=== PATIENT | female | born 2000 | race Two or more races ===

== ENCOUNTER 2024-12-10 09:03 | Emergency (ER) | payer OTHER ==
[~2024-12-10] VITALS: Ht 157.5 cm; Wt 73.5 kg
--- NOTE | 2024-12-10 09:41 | ED.PDOC ---
History of Present Illness HPI Comments 24 year old female with runny nose on and off for last 2 weeks. 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 patient states she noticed some swelling on the left lymph node. No nause no vomiting. Chief Complaint: Flu like Time Seen by MD: 09:36 Primary Care Provider: MILO Owens Notes: Nurses Notes, Medications, Allergies Allergies: Coded Allergies: NO KNOWN ALLERGIES (Unverified , 12/10/24) Information Source: Patient Mode of Arrival: Ambulatory Past Medical History Past Medical History (Other): osteoscarcoma SIDE FRAMER History: Denies all SIDE FRAMER Hx Social History Smoker: Non-Smoker Alcohol: Denies ETOH Use Drugs: Denies Drug Use Lives In: Home Constitutional: reports: chills, fever EENTM: reports: nasal discharge, nose congestion Hematologic/Lymphatic: reports: swollen glands All Other Systems: Reviewed and Negative Physical Exam General Appearance: No Apparent Distress, Normal HEENT: Pharynx Normal, Sinuses (clear drainage), TM Abnormal (R), TMs Normal Neck: Non-Tender, Normal Inspection Respiratory: Lungs Clear, No Respiratory Distress, Normal Breath Sounds Cardiovascular: Regular Rate/Rhythm Breast Exam: Deferred Gastrointestinal: Normal Bowel Sounds, Soft Genitalia: Deferred Pelvic: Deferred Rectal: Deferred Extremities: Normal inspection, Normal range of motion Neurologic: Alert, Normal Affect Cerebellar Function: NOT DONE Reflexes: NOT DONE Skin: Dry, Warm Lymphatic: Axilla Node Tender (L) Was a procedure done? Was a procedure done?: No Differential Dx Considerations may include: influenza vs viral vs covid X-Ray, Labs, Meds, VS Vital Signs Date Time Temp Pulse Resp B/P (MAP) Pulse Ox O2 Delivery O2 Flow Rate FiO2 12/10/24 09:53 97.9 117 20 130/80 (97) 98 97.9 12/10/24 09:53 117 20 98 12/10/24 09:12 99.0 131 18 132/81 (98) 98 Lab Test 12/10/24 09:19 12/10/24 09:10 Range/Units Influenza Type A Antigen Negative Negative Influenza Type B Antigen Negative Negative SARS-CoV-2 Antigen (Rapid) Negative NEGATIVE X-Ray, Labs, Meds, VS Comment Patient was seen and examined by me. Covid test and flu test were negative. Patient with no other symptoms. I explained that the fever may be in response to her Chemo therapy that she is going thru. Patient has a follow-up with her Oncologist on Dec 13. Patient was told to continue Tylenol and Motrin for fever. Time of 1ST Reevaluation: 11:09 Reevaluation 1ST: Improved Patient Education/Counseling: Diagnosis, Treatment, Prognosis, Need For Follow Up Family Education/Counseling: Diagnosis, Treatment, Prognosis, Need For Follow Up Departure 1 Departure Time of Disposition: 11:10 Impression: Primary Impression: Fever Additional Impression: Osteosarcoma Disposition: 01 HOME / SELF CARE / HOMELESS Condition: Good Additional Instructions: Your Covid and Flu test were negative Please continue to take Tylenol and Motrin every 4-6 hours for your fever Follow-up with the Oncologist/ Test Driller Discharged With: Self Critical Care Note Critical Care Time?: No Stability Stability form required: GINGER Eagle Dec 10, 2024 09:41
[2024-12-10 09:53] VITALS: BP 130/80; PULSE 117; RESP 20; TEMP 97.9; O2SAT 98
[2024-12-10 10:37] LABS: COVID19 ANTIGEN SOFIA FIA NEGATIVE (NEGATIVE)
[2024-12-10 10:40] LABS: Rapid Influenza A Negative (Negative); Rapid Influenza B Negative (Negative)
== END 2024-12-10 11:19 | disposition home or self-care (01) ==
LOC: ER 09:03
DX: R09.81 Nasal congestion (principal); R50.9 Fever, unspecified; Z20.822 Contact with and (suspected) exposure to COVID-19; Z85.830 Personal history of malignant neoplasm of bone
CPT/HCPCS: 36415; 87426; 87804